=== PATIENT | female | born 1950 | race Hispanic/Latino ===

== ENCOUNTER → 2023-11-25 | Outpatient (REF) | payer MEDICARE ==
[~2023-11-25] MED LIST: AZITHROMYCIN250 MG PO; BENZONATATE100 MG PO; CEFDINIR300 MG PO
== END ==
LOC: CT 12:22
PROVIDERS: ATTEND Internal Medicine Critical Care Medicine
DX: R22.9 Localized swelling, mass and lump, unspecified (principal)
CPT/HCPCS: 71250

== ENCOUNTER → 2024-04-04 | Outpatient (REF) | payer MEDICARE, OTHER | LOC: CT 12:39 | PROVIDERS: ATTEND Internal Medicine Critical Care Medicine | DX: R91.8 Other nonspecific abnormal finding of lung field (principal); I10 Essential (primary) hypertension | CPT/HCPCS: 71250 ==